=== PATIENT | male | born 1985 | race African-American/Black ===

== ENCOUNTER 2017-10-23 13:24 | Emergency (ER) | payer SELFPAY ==
[2017-10-23] MEDS ORDERED: Lidocaine Viscous Sol 2% 15 ml UD Cup ONE (14:15)
[2017-10-23] MEDS ORDERED: Mag-Al 1200 mg/1200 mg/30 ML UDCUP ONE (14:15)
[2017-10-23] MEDS ORDERED: Ondansetron ODT 8 MG TAB ONE (14:15)
[2017-10-23] MEDS ORDERED: Famotidine 20 MG TAB ONE ×2 (14:15→14:19)
== END 2017-10-23 14:52 | disposition home or self-care (01) ==
LOC: ERS 13:24
DX: K29.70 Gastritis, unspecified, without bleeding (principal); F32.9 Major depressive disorder, single episode, unspecified
CPT/HCPCS: 99283

== ENCOUNTER 2018-05-04 12:29 | Emergency (ER) | payer SELFPAY | END 2018-05-04 12:47 | disposition home or self-care (01) | LOC: ERS 12:29 | DX: J06.9 Acute upper respiratory infection, unspecified (principal) | CPT/HCPCS: 99283 ==

== ENCOUNTER 2018-08-02 11:11 | Emergency (ER) | payer SELFPAY | END 2018-08-02 11:31 | disposition home or self-care (01) | LOC: ERS 11:11 | DX: Z02.1 Encounter for pre-employment examination (principal) | CPT/HCPCS: 99282 ==

== ENCOUNTER 2019-11-19 09:22 | Emergency (ER) | payer OTHER, SELFPAY ==
[2019-11-20 12:15] LABS: SARS-CoV-2 MS2 Positive; SARS-CoV-2 N Gene Negative; SARS-CoV-2 S Gene Negative; SARS-CoV-2 orf1ab Negative
== END 2019-11-19 10:12 | disposition home or self-care (01) ==
LOC: ERS 09:22
DX: J02.9 Acute pharyngitis, unspecified (principal); Z20.828 Contact with and (suspected) exposure to other viral communicable diseases
CPT/HCPCS: 87081; 87430; 87635; 99283; U0003

== ENCOUNTER 2020-08-17 09:14 | Emergency (ER) | payer OTHER, SELFPAY | END 2020-08-17 09:25 | disposition home or self-care (01) | LOC: ERS 09:14 | DX: Z02.79 Encounter for issue of other medical certificate (principal) | CPT/HCPCS: 99281 ==

== ENCOUNTER 2021-01-03 12:05 | Emergency (ER) | payer SELFPAY ==
[2021-01-03 17:48] LABS: SARS-CoV-2 PCR by NAA Not Detected (NotDetected)
== END 2021-01-03 12:38 | disposition home or self-care (01) ==
LOC: ERS 12:05
DX: J02.9 Acute pharyngitis, unspecified (principal); Z20.822 Contact with and (suspected) exposure to COVID-19
CPT/HCPCS: 99283; U0003; U0005

== ENCOUNTER 2021-04-12 10:14 | Emergency (ER) | payer SELFPAY ==
[2021-04-12 17:11] LABS: SARS-CoV-2 PCR by NAA Not Detected (NotDetected)
== END 2021-04-12 11:55 | disposition home or self-care (01) ==
LOC: ERS 10:14
DX: R19.7 Diarrhea, unspecified (principal); J06.9 Acute upper respiratory infection, unspecified; Z20.822 Contact with and (suspected) exposure to COVID-19
CPT/HCPCS: 99284; U0003; U0005

== ENCOUNTER 2021-06-17 09:46 | Emergency (ER) | payer SELFPAY | END 2021-06-17 12:05 | disposition home or self-care (01) | LOC: ERS 09:46 | DX: B34.9 Viral infection, unspecified (principal) | CPT/HCPCS: 99283 ==